=== PATIENT | male | born 1975 | race African-American/Black ===

== ENCOUNTER 2021-05-16 09:37 | Outpatient (REF) | payer OTHER, SELFPAY ==
[2021-05-16 10:52] LABS: COVID-19 Test Negative (Negative)
== END 2021-05-16 09:38 | disposition home or self-care (01) ==
LOC: HO.LAB 09:37
PROVIDERS: PCP Internal Medicine; Visit Provider Internal Medicine
DX: Z20.822 Contact with and (suspected) exposure to COVID-19 (principal)
CPT/HCPCS: 36415; 87635; C9803

== ENCOUNTER 2021-10-27 07:22 | Outpatient (REF) | payer OTHER, SELFPAY ==
--- NOTE | ~2021-10-27 | XR_ITS ---
EXAMINATION: XR knee RT 2V, XR knee standing BI CLINICAL INFORMATION: Reason for Exam M25.569 - Pain in unspecified knee COMPARISON: None. TECHNIQUE: Two views of the right knee and one view standing of the bilateral knees XR/XR knee standing BI FINDINGS/IMPRESSION: * No acute fracture or dislocation. * Moderate degenerative changes of the bilateral knees which on the right involves the medial and patellofemoral compartments with and on the left involves at least the medial compartment with loss of joint space and degenerative spurring. * No right suprapatellar joint effusion or soft tissue abnormality.
--- NOTE | ~2021-10-27 | XR_ITS ---
EXAMINATION: XR knee RT 2V, XR knee standing BI CLINICAL INFORMATION: Reason for Exam M25.569 - Pain in unspecified knee COMPARISON: None. TECHNIQUE: Two views of the right knee and one view standing of the bilateral knees XR/XR knee RT 2V FINDINGS/IMPRESSION: * No acute fracture or dislocation. * Moderate degenerative changes of the bilateral knees which on the right involves the medial and patellofemoral compartments with and on the left involves at least the medial compartment with loss of joint space and degenerative spurring. * No right suprapatellar joint effusion or soft tissue abnormality.
== END 2021-10-27 07:23 | disposition home or self-care (01) ==
LOC: HO.HOSX 07:22
PROVIDERS: Visit Provider Physician Assistant
DX: M17.11 Unilateral primary osteoarthritis, right knee (principal)
CPT/HCPCS: 20610; 73560; 73565; J1040

== ENCOUNTER 2023-03-05 12:03 | Outpatient (REF) | payer OTHER, SELFPAY ==
--- NOTE | ~2023-03-05 | XR_ITS ---
EXAMINATION: XR BILATERAL KNEES CLINICAL INFORMATION: Reason for Exam M25.569 - Pain in unspecified knee COMPARISON: Knee radiographs 10/27/2021 TECHNIQUE: One view of the bilateral knees and 2 views of the right knee FINDINGS: Technically limited AP view of the bilateral knees standing. RIGHT KNEE: No acute fracture or dislocation. Advanced degenerative changes of the knee with near complete loss of medial compartment joint space slightly progressed from prior and medial and lateral compartment osteophytes. Quadriceps tendon and Achilles tendon enthesopathy. No joint effusion. Soft tissues are unremarkable. LEFT KNEE: Limited single view is remarkable for moderate bordering on advanced degenerative changes of the knee with loss of medial compartment joint space and medial compartment osteophytes, similar to prior. Technique limits assessment for fracture or soft tissue abnormalities. XR/XR knee standing BI IMPRESSION: * No acute osseous abnormality. * Advanced degenerative changes of the right knee and moderate bordering on advanced degenerative changes of the left knee.
--- NOTE | ~2023-03-05 | XR_ITS ---
EXAMINATION: XR BILATERAL KNEES CLINICAL INFORMATION: Reason for Exam M25.569 - Pain in unspecified knee COMPARISON: Knee radiographs 10/27/2021 TECHNIQUE: One view of the bilateral knees and 2 views of the right knee FINDINGS: Technically limited AP view of the bilateral knees standing. RIGHT KNEE: No acute fracture or dislocation. Advanced degenerative changes of the knee with near complete loss of medial compartment joint space slightly progressed from prior and medial and lateral compartment osteophytes. Quadriceps tendon and Achilles tendon enthesopathy. No joint effusion. Soft tissues are unremarkable. LEFT KNEE: Limited single view is remarkable for moderate bordering on advanced degenerative changes of the knee with loss of medial compartment joint space and medial compartment osteophytes, similar to prior. Technique limits assessment for fracture or soft tissue abnormalities. XR/XR knee RT 2V IMPRESSION: * No acute osseous abnormality. * Advanced degenerative changes of the right knee and moderate bordering on advanced degenerative changes of the left knee.
== END 2023-03-05 12:04 | disposition home or self-care (01) ==
LOC: HO.HOSX 12:03
PROVIDERS: Visit Provider Physician Assistant
DX: M17.11 Unilateral primary osteoarthritis, right knee (principal)
CPT/HCPCS: 20610; 73560; 73565; J1040

== ENCOUNTER 2023-03-05 12:45 | Outpatient (AMB) | payer OTHER, SELFPAY ==
--- NOTE | 2023-03-05 12:56 | A.OFFVIS_ITS ---
Intake Intake Visit Reasons: ov- Osteoarthritis of right knee Intake Note: Lisbeth is a 47 year old male who presents today for a follow up of his right knee. Hx of use of Tylenol with mild relief. Hx of knee brace with no relief. Right knee was last injected on 10/27/22. Patient reports that this injection lasted him about 3 - 4 months ago. He states that he would like to repeat his injection. Hx of PT with no relief. Allergies [place] nut [BRAZIL NUT] Allergy (Mild, Verified 03/05/23 13:03) ANAPHYLAXIS brazil nuts Allergy (Mild, Verified 03/05/23 13:03) difficulty breathing Apple Jacks cereal Allergy (Mild, Uncoded 07/18/22 14:16) mild beestings Allergy (Mild, Uncoded 07/18/22 14:16) mild HPI ov- Osteoarthritis of right knee HPI Details 47-year-old male who presents in the off ice today for a follow up of right knee pain. The patient had a cortisone injection on 10/27/2021, which gave him 3-4 months of relief. He confirms the use of Tylenol with mild pain relief, use of a knee brace with no pain relief, and participating in physical therapy with no relief. He would like to repeat the cortisone injection while in the office today. [facility]LY [facility], [facility] Social History Current occupational status: employed Current occupation: house keeper/ left hand Review of Systems Const All systems reviewed & are unremarkable except as noted in HPI and below Physical Exam Const General: cooperative, healthy appearing and no acute distress Orientation/consciousness: patient oriented x3 Resp Effort & Inspection: normal respiratory effort and able to speak in complete sentences Cardio Rate: regular rate Peripheral pulses: Peripheral pulses 2+ throughout GI Palpation (GI): Soft to palpation Skin General skin exam: no rashes or lesions noted Lesions: no lesions Rashes: no rashes Neuro General: patient oriented x3 Extrem Other: Right knee normal to inspection. No ecchymosis, erythema, or joint effusion. Mild tenderness to palpation of the medial and lateral joint lines. Cepitus felt with ROM. Negative Pauline's. Negative Anterior drawer. NVI. Office Procedures Joint Injection/Drain Joint Injection/Drain Primary Site: right knee Prep: site was prepped using aseptic technique, ethochloride spray was applied and injection warnings given Injected: 80 mg of, DepoMedrol, with 8 mL of (2% plain lido ) and in the joint Approach Used: anterolateral Procedure: The patient tolerated the procedure well, but had some pain with the injection and there was some relief with the local anesthesia Coding - Large joint Procedure code (CPT) selection complete Results Reviewed Results Reviewed: 03/05/23 13:04 Lidocaine HCl 2 % MPF [Xylocaine 2 % MPF] 5 ml .ROUTE .STK-MED ONE methylPREDNISolone acetate [DEPO-MedroL] 80 mg .ROUTE .STK-MED ONE Assessment & Plan Assessment & Plan (1) Osteoarthritis of right knee: Code(s): M17.11 - Unilateral primary osteoarthritis, right knee Qualifiers: Osteoarthritis type: unspecified Qualified Code(s): M17.11 - Unilateral primary osteoarthritis, right knee Plan Mr. Deshpande is a 47-year-old male who presents in the office today for a follow up of right knee pain. The patient had a cortisone injection on 10/27/2021, which gave him 3-4 months of relief. He confirms the use of Tylenol with mild pain relief, use of a knee brace with no pain relief, and participating in physical therapy with no relief. He would like to repeat the cortisone injection while in the office today. The patient was offered a cortisone injection in the right knee with 80 mg of DepoMedrol. The patient was explained the risk, benefits, and alternatives to receiving this injection. After receiving consent for the injection, the patient had the procedure done while in office today. The patient tolerated the procedure well with no complications. Follow up will be PRN, or sooner if needed. X-rays of the right knee obtained while in the office today and reviewed by me, Jenniffer Kelly PA-C, revealed osteoarthritis. Patient Instructions: Scribed for Jenniffer Kelly PA-C by Lynda Dc medical technologist chief, on 03/05/2023 at 12:46 pm, EST. Coding Level of Care Code Est Pt Level 3 (62798) Diagnoses Osteoarthritis of right knee, unspecified osteoarthritis type M17.11 Osteoarthritis type: unspecified CPT Codes Coding - 35630 Large joint: 04242 - Large joint ([id number])
== END 2023-03-05 13:20 | disposition home or self-care (01) ==
PROVIDERS: PCP Internal Medicine; Visit Provider Physician Assistant
DX: M17.11 Unilateral primary osteoarthritis, right knee (principal)
CPT/HCPCS: 20610; 99213

== ENCOUNTER 2023-06-18 11:20 | Outpatient (AMB) | payer OTHER, SELFPAY ==
--- NOTE | 2023-06-18 11:35 | A.OFFVIS_ITS ---
Intake Intake Visit Reasons: OV - right knee OA, last inj 03/05/23 Intake Note: Lisbeth is a 47 year old male who presents today for a follow up of his right knee OA, last injection 03/05/23. Patient reports his last injection gave him relief and would like to repeat. Allergies [place] nut [BRAZIL NUT] Allergy (Mild, Verified 06/18/23 11:38) ANAPHYLAXIS brazil nuts Allergy (Mild, Verified 06/18/23 11:38) difficulty breathing Apple Jacks cereal Allergy (Mild, Uncoded 07/18/22 14:16) mild beestings Allergy (Mild, Uncoded 07/18/22 14:16) mild HPI OV - right knee OA, last inj 03/05/23 HPI Details 47-year-old male who presents in the off ice today for a follow up of right knee osteoarthritis. I last saw the patient in the office on 03/05/2023 when he has his last cortisone injection in the right knee. The patient reports yesterday he began to have left foot pain with erythema on the lateral aspect . He states he was taking Ibuprofen 800 mg several times starting yesterday to today which gives him some relief. He denies a history of diabetes mellitus or gout. [facility] Social History Current occupational status: employed Current occupation: house keeper/ left hand Review of Systems Const All systems reviewed & are unremarkable except as noted in HPI and below Physical Exam Const General: cooperative, healthy appearing and no acute distress Resp Effort & Inspection: normal respiratory effort and able to speak in complete sentences Cardio Rate: regular rate Peripheral pulses: Peripheral pulses 2+ throughout GI Palpation (GI): Soft to palpation Skin Lesions: no lesions Rashes: no rashes Extrem Other: Right knee normal to inspection. No ecchymosis, erythema, or joint effusion. Mild tenderness to palpation of the medial and lateral joint lines. Cepitus felt with ROM. Negative Pauline's. Negative Anterior drawer. NVI. Office Procedures Joint Injection/Drain Joint Injection/Drain Primary Site: right knee Prep: site was prepped using aseptic technique, ethochloride spray was applied and injection warnings given Injected: 80 mg of, DepoMedrol, with 8 mL of (2% plain lido) and in the joint Approach Used: anterolateral Procedure: The patient tolerated the procedure well, but had some pain with the injection and there was some relief with the local anesthesia Coding 67656 - Large joint Procedure code (CPT) selection complete Assessment & Plan Assessment & Plan (1) Osteoarthritis of right knee: Code(s): M17.11 - Unilateral primary osteoarthritis, right knee Qualifiers: Osteoarthritis type: unspecified Qualified Code(s): M17.11 - Unilateral primary osteoarthritis, right knee Plan Mr. Deshpande is a 47-year-old male who presents in the office today for a follow up of right knee osteoarthritis. I last saw the patient in the office on 03/05/2023 when he has his last cortisone injection in the right knee. The patient reports yesterday he began to have left foot pain with erythema on the side. He states he was taking Ibuprofen 800 mg several times yesterday to today which gives him some relief. He denies a history of diabetes mellitus or gout. The patient was offered a cortisone injection in the right knee with 80 mg of DepoMedrol. The patient was explained the risk, benefits, and alternatives to receiving this injection. After receiving consent for the injection, the patient had the procedure done while in office today. The patient tolerated the procedu re well with no complications. Follow up will be PRN, or sooner if needed. Patient Instructions: Scribed for Jenniffer Kelly PA-C by Lynda Dc medical laboratory manager, on 06/18/2023 at 11:22 am, EST. Coding Level of Care Code Est Pt Level 3 (54002) Diagnoses Osteoarthritis of right knee, unspecified osteoarthritis type M17.11 Osteoarthritis type: unspecified CPT Codes Coding - 31371 Large joint: 75662 - Large joint ([id number])
== END 2023-06-18 11:43 | disposition home or self-care (01) ==
PROVIDERS: PCP Internal Medicine; Visit Provider Physician Assistant
DX: M17.11 Unilateral primary osteoarthritis, right knee (principal)
CPT/HCPCS: 20610; 99213

== ENCOUNTER → 2023-06-18 11:20 | Outpatient (BNVA) | payer OTHER, SELFPAY | PROVIDERS: PCP Internal Medicine; Visit Provider Physician Assistant | DX: M17.11 Unilateral primary osteoarthritis, right knee (principal) | CPT/HCPCS: 20610; J1040 ==

== ENCOUNTER 2023-10-08 11:03 | Outpatient (AMB) | payer OTHER, SELFPAY ==
--- NOTE | 2023-10-08 11:14 | MHC.OFFVIS ---
Vital Signs 10/08/23 11:17 Height 6 ft 1 in Weight 340 lb BMI 44.9 Intake Visit Reasons: OV - right knee OA, last inj 06/18/23 Intake Note: Lisbeth is a 47 year old male who presents today for a follow up of his right knee OA, last injection 06/18/23. Patient reports his last injection lasted him 3 months and he would like to repeat. Allergies [place] nut [BRAZIL NUT] Allergy (Mild, Verified 10/08/23 11:18) ANAPHYLAXIS brazil nuts Allergy (Mild, Verified 10/08/23 11:18) difficulty breathing Apple Jacks cereal Allergy (Mild, Uncoded 07/18/22 14:16) mild beestings Allergy (Mild, Uncoded 07/18/22 14:16) mild HPI HPI OV - right knee OA, last inj 06/18/23: Details: 47-year-old male who presents in the office today for a follow up of right knee osteoarthritis. I last saw the patient in the office on 06/18/2023 when he was given a cortisone injection in the right knee. While in the office the patient reports his last injection lasted for three months and he would like a repeat injection today. [facility] Social History Current occupational status: employed Current occupation: house keeper/ left hand Review of Systems Const All systems reviewed & are unremarkable except as noted in HPI and below Physical Exam Vital Signs: BMI result Body Mass Index 44.9 Const General: cooperative, healthy appearing and no acute distress Resp Effort & Inspection: normal respiratory effort and able to speak in complete sentences Cardio Rate: regular rate Peripheral pulses: Peripheral pulses 2+ throughout GI Palpation (GI): Soft to palpation Skin Lesions: no lesions Rashes: no rashes Extrem Other: Right knee normal to inspection. No ecchymosis, erythema, or joint effusion. Mild tenderness to palpation of the medial and lateral joint lines. Cepitus felt with ROM. Negative Pauline's. Negative Anterior drawer. NVI. Office Procedures Joint Injection/Drain Joint Injection/Drain Primary Site: right knee Prep: site was prepped using aseptic technique, ethochloride spray was applied and injection warnings given Injected: 80 mg of, DepoMedrol, with 8 mL of (2% plain lido ) and in the joint Approach Used: anterolateral Procedure: The patient tolerated the procedure well, but had some pain with the injection and there was some relief with the local anesthesia Coding - Large joint Procedure code (CPT) selection complete Assessment & Plan Assessment & Plan (1) Osteoarthritis of right knee: Code(s): M17.11 - Unilateral primary osteoarthritis, right knee Category: Medical Qualifiers: Osteoarthritis type: unspecified Qualified Code(s): M17.11 - Unilateral primary osteoarthritis, right knee Plan Mr. Deshpande is a 47-year-old male who presents in the office today for a follow up of right knee osteoarthritis. I last saw the patient in the office on 06/18/2023 when he was given a cortisone injection in the right knee. While in the office the patient reports his last injection lasted for three months and he would like a repeat injection today. The patient was offered a cortisone injection in the right knee with 80 mg of DepoMedrol. The patient was explained the risk, benefits, and alternatives to receiving this injection. After receiving consent for the injection, the patient had the procedure done while in the office today. The patient tolerated the procedure well with no complications. Follow up will be PRN, or sooner if needed. Patient Instructions: Scribed by Lynda Dc medical device assembler, for Jenniffer Kelly PA-C on 10/08/2023 at 11:31 am, EST. Coding Level of Care Code Est Pt Level 3 (10521) Diagnoses Osteoarthritis of right knee, unspecified osteoarthritis type M17.11 Osteoarthritis type: unspecified CPT Codes Coding - Large joint: 30566 - Large joint ([id number])
[2023-10-08 11:17] VITALS: BMI 44.9
== END 2023-10-08 11:50 | disposition home or self-care (01) ==
PROVIDERS: PCP Internal Medicine; Visit Provider Physician Assistant
DX: M17.11 Unilateral primary osteoarthritis, right knee (principal)
CPT/HCPCS: 20610; 99213

== ENCOUNTER → 2023-10-08 11:03 | Outpatient (BNVA) | payer OTHER, SELFPAY | PROVIDERS: PCP Internal Medicine; Visit Provider Physician Assistant | DX: M17.11 Unilateral primary osteoarthritis, right knee (principal) | CPT/HCPCS: 20610; J1010 ==

== ENCOUNTER 2024-06-02 09:35 | Outpatient (AMB) | payer OTHER, SELFPAY ==
--- NOTE | 2024-06-02 09:38 | MHC.OFFVIS ---
Intake Visit Reasons: Inj-right knee OA, last inj 10/08/23 Intake Note: Lisbeth is a 48 year old male who presents today for a repeat injection for his right knee, last injection 10/08/23. Patient reports his last injection gave him relief. Allergies [place] nut [BRAZIL NUT] Allergy (Mild, Verified 10/08/23 11:18) ANAPHYLAXIS brazil nuts Allergy (Mild, Verified 10/08/23 11:18) difficulty breathing Apple Jacks cereal Allergy (Mild, Uncoded 07/18/22 14:16) mild beestings Allergy (Mild, Uncoded 07/18/22 14:16) mild HPI HPI Inj-right knee OA, last inj 10/08/23: Details: 48-year-old male who presents in the office today for a follow-up of right knee injection. I last saw the patient in the office on 10/08/23, when he was given a cortisone injection in the right knee. While in the office today, the patient reports that his last cortisone injection in the right knee provided him with relief. He would like to have a repeat injection today. [facility]LY [facility] Social History Current occupational status: employed Current occupation: house keeper/ left hand Review of Systems Const All systems reviewed & are unremarkable except as noted in HPI and below Physical Exam Const General: cooperative, healthy appearing and no acute distress Resp Effort & Inspection: normal respiratory effort and able to speak in complete sentences Cardio Rate: regular rate Peripheral pulses: Peripheral pulses 2+ throughout GI Palpation (GI): Soft to palpation Skin Lesions: no lesions Rashes: no rashes Extrem Other: Right knee normal to inspection. No ecchymosis, erythema, or joint effusion. Mild tenderness to palpation of the medial and lateral joint lines. Cepitus felt with ROM. NVI. Office Procedures AMB Joint Injection/Aspiration Joint Injection/Aspiration Primary Site: right knee Prep: site was prepped using aseptic technique, ethochloride spray was applied and injection warnings given Injected: 80 mg of, DepoMedrol, with 8 mL of (2% plain lido ) and in the joint Approach Used: anterolateral Procedure: The patient tolerated the procedure well, but had some pain with the injection and there was some relief with the local anesthesia Coding 63997 - Large joint Procedure code (CPT) selection complete Assessment & Plan Assessment & Plan (1) Osteoarthritis of right knee: Code(s): M17.11 - Unilateral primary osteoarthritis, right knee Category: Medical Qualifiers: Osteoarthritis type: unspecified Qualified Code(s): M17.11 - Unilateral primary osteoarthritis, right knee Plan Mr. Deshpande is a 48-year-old male who presents in the office today for a follow-up of right knee injection. I last saw the patient in the office on 10/08/23, when he was given a cortisone injection in the right knee. While in the office today, the patient reports that his last cortisone injection in the right knee provided him with relief. He would like to have a repeat injection today. The patient was offered a cortisone injection in the right knee with 80 mg of DepoMedrol. The patient was explained the risk, benefits, and alternatives to receiving this injection. After receiving consent for the injection, the patient had the procedure done while in the office today. The patient tolerated the procedure well with no complications. Follow-up will be PRN, or sooner if needed. Patient Instructions: Scribed by Teresa Cabezas medical claims representative, for Jenniffer Kelly PA-C on 06/02/24 at 9:55 am EST. Coding Level of Care Code Est Pt Level 3 (21072) Diagnoses Osteoarthritis of right knee, unspecified osteoarthritis type M17.11 Osteoarthritis type: unspecified CPT Codes Coding - 27358 Large joint: 38537 - Large joint ([id number])
== END 2024-06-02 10:06 | disposition home or self-care (01) ==
PROVIDERS: PCP Internal Medicine; Visit Provider Physician Assistant
DX: M17.11 Unilateral primary osteoarthritis, right knee (principal)
CPT/HCPCS: 20610; 99213

== ENCOUNTER → 2024-06-02 09:35 | Outpatient (BNVA) | payer OTHER, SELFPAY | PROVIDERS: PCP Internal Medicine; Visit Provider Physician Assistant | DX: M17.11 Unilateral primary osteoarthritis, right knee (principal) | CPT/HCPCS: 20610; J1010; J2003 ==

== ENCOUNTER 2024-09-01 09:28 | Outpatient (AMB) | payer OTHER, SELFPAY ==
--- NOTE | 2024-09-01 09:32 | MHC.OFFVIS ---
Vital Signs 09/01/24 09:44 Height 6 ft 1 in Weight 340 lb BMI 44.9 Intake Visit Reasons: Inj- B/L knee pain, last inj right 06/02/24 Intake Note: Lisbeth is a 48 year old male who presents today with Right Knee OA for a repeat Right Knee Injection, his last injection of 80 mg Depo was injected to the right knee on 06/02/24. Patient is looking to get both of his knees injected if it is possible. Allergies [place] nut [BRAZIL NUT] Allergy (Mild, Verified 09/01/24 09:44) ANAPHYLAXIS brazil nuts Allergy (Mild, Verified 09/01/24 09:44) difficulty breathing Apple Jacks cereal Allergy (Mild, Uncoded 07/18/22 14:16) mild beestings Allergy (Mild, Uncoded 07/18/22 14:16) mild HPI HPI Inj- B/L knee pain, last inj right 06/02/24: Details: Mr. Deshpande is a 48-year-old male who presents to the office today for bilateral knee pain right greater than left. At his last appointment on 06/02/2024 he received a right knee injection which did give him relief up until recently. Reports that he had severe right knee pain and was compensating with his left lower extremity. Since then he has noticed an increase in pain in the left lower extremity. [facility] Social History Current occupational status: employed Current occupation: house keeper/ left hand Review of Systems Const All systems reviewed & are unremarkable except as noted in HPI and below Physical Exam Vital Signs: BMI result Body Mass Index 44.9 Const General: cooperative, healthy appearing and no acute distress Resp Effort & Inspection: normal respiratory effort and able to speak in complete sentences Cardio Rate: regular rate Peripheral pulses: Peripheral pulses 2+ throughout GI Palpation (GI): Soft to palpation Skin Lesions: no lesions Rashes: no rashes Extrem Other: Bilateral knees normal to inspection. No ecchymosis, erythema, or joint effusion. Mild tenderness to palpation of the medial and lateral joint lines. Cepitus felt with ROM. NVI. Office Procedures AMB Joint Injection/Aspiration Joint Injection/Aspiration Primary Site: right knee Secondary Site: left knee Prep: site was prepped using aseptic technique, ethochloride spray was applied and injection warnings given Injected: 80 mg of, DepoMedrol, with 8 mL of (2% plain lidocaine) and in the joint Approach Used: anterolateral Procedure: The patient tolerated the procedure well, but had some pain with the injection and there was some relief with the local anesthesia Coding 45485 - Large joint Procedure code (CPT) selection complete Assessment & Plan Assessment & Plan (1) Osteoarthritis of left knee: Code(s): M17.12 - Unilateral primary osteoarthritis, left knee Category: Medical (2) Osteoarthritis of right knee: Code(s): M17.11 - Unilateral primary osteoarthritis, right knee Category: Medical Qualifiers: Osteoarthritis type: unspecified Qualified Code(s): M17.11 - Unilateral primary osteoarthritis, right knee Plan Mr. Deshpande is a 48-year-old male who presents to the office today for bilateral knee pain right greater than left. At his last appointment on 06/02/2024 he received a right knee injection which did give him relief up until recently. Reports that he had severe right knee pain and was compensating with his left lower extremity. Since then he has noticed an increase in pain in the left lower extremity. The patient was offered a cortisone injection in bilateral knees with 80 mg of DepoMedrol. The patient was explained the risks, benefits, and alternatives to receiving this injection. After receiving consent for the injection, the patient had the procedure done while in the office today. The patient tolerated the procedure well with no complications. Follow-up will be p.r.n., or sooner if needed. X-rays of bilateral knees which were obtained while in the office today and were reviewed by me, Jenniffer Kelly PA-C, revealed osteoarthritis of both knees. No acute fracture dislocation. Orders: Orders XR knee LT 3V Today M25.569 - Pain in unspecified knee XR knee RT 3V Today M25.569 - Pain in unspecified knee Coding Level of Care Code Est Pt Level 3 (40570) Diagnoses Osteoarthritis of left knee M17.12 Osteoarthritis of right knee, unspecified osteoarthritis type M17.11 Osteoarthritis type: unspecified CPT Codes Coding - 40267 Large joint: 88364 - Large joint ([id number])
[2024-09-01 09:44] VITALS: BMI 44.9
== END 2024-09-01 11:40 | disposition home or self-care (01) ==
LOC: HO.HOS 09:28
PROVIDERS: PCP Internal Medicine; Visit Provider Physician Assistant
DX: M17.0 Bilateral primary osteoarthritis of knee (principal)
CPT/HCPCS: 20610; 99213

== ENCOUNTER 2024-09-01 09:28 | Outpatient (REF) | payer OTHER, SELFPAY ==
--- NOTE | ~2024-09-01 | XR_ITS ---
CLINICAL HISTORY: M25.569 - Pain in unspecified knee Left knee three views Comparison: None Findings: No acute fracture or dislocation noted. No significant joint effusion identified. Degenerative change with loss of joint space. This is greatest in the medial compartment. No soft tissue foreign body. Impression: No acute bony abnormality. This document has been electronically signed by: Tad Adrian MD on 09/01/2024 18:29:07
--- NOTE | ~2024-09-01 | XR_ITS ---
CLINICAL HISTORY: M25.569 - Pain in unspecified knee Right knee 2 views Comparison: None Findings: No acute fracture or dislocation noted. No significant joint effusion identified. Degenerative change with loss of joint space. This is greatest in the medial compartment. No soft tissue foreign body. Impression: No acute bony abnormality This document has been electronically signed by: Tad Adrian MD on 09/01/2024 18:28:33
== END 2024-09-01 09:29 | disposition home or self-care (01) ==
LOC: HO.HOSX 09:28
PROVIDERS: PCP Internal Medicine; Visit Provider Physician Assistant
DX: M17.0 Bilateral primary osteoarthritis of knee (principal)
CPT/HCPCS: 20610; 73562; J1010; J2003

== ENCOUNTER → 2024-09-01 09:39 | Outpatient (BNV) | payer OTHER, SELFPAY | PROVIDERS: PCP Internal Medicine; Visit Provider Radiology Diagnostic Radiology | DX: M25.561 Pain in right knee (principal); M25.562 Pain in left knee | CPT/HCPCS: 73562 ==

== ENCOUNTER 2024-12-03 10:04 | Outpatient (AMB) | payer OTHER, SELFPAY ==
--- NOTE | 2024-12-03 10:12 | MHC.OFFVIS ---
Intake Visit Reasons: Inj-right knee OA, last inj 09/01/24 Intake Note: Lisbeth is a 48 year old male who presents today for a repeat injection for his right knee, last injection of 80 mg Depo was injected on both knees on 09/01/24. Patient states he found relief with his last bilateral injections. Accompanied by: Spouse Allergies [place] nut (BRAZIL NUT) Allergy (Mild, Verified 12/03/24 10:13) ANAPHYLAXIS brazil nuts Allergy (Mild, Verified 12/03/24 10:13) difficulty breathing Apple Jacks cereal Allergy (Mild, Uncoded 12/03/24 10:13) mild beestings Allergy (Mild, Uncoded 12/03/24 10:13) mild HPI HPI Inj-right knee OA, last inj 09/01/24: Details: Mr. Deshpande is a 48-year-old male who presents to the office today for evaluation of bilateral chronic knee pain. He had bilateral t knee injections last performed on 09/01/2024. He would like to repeat injections in both knees today. [facility] Medical History (Updated 12/03/24 @ 10:14 by Marilee Nelson [facility]) Osteoarthritis of left knee Osteoarthritis of right knee Social History Current occupational status: employed Current occupation: house keeper/ left hand Review of Systems Const All systems reviewed & are unremarkable except as noted in HPI and below Physical Exam Const General: cooperative, healthy appearing and no acute distress Resp Effort & Inspection: normal respiratory effort and able to speak in complete sentences Extrem Other: Bilateral knees normal to inspection. No ecchymosis, erythema, or joint effusion. Mild tenderness to palpation of the medial and lateral joint lines. Cepitus felt with ROM. NVI. Office Procedures AMB Joint Injection/Aspiration Joint Injection/Aspiration Primary Site: right knee Secondary Site: left knee Prep: site was prepped using aseptic technique, ethochloride spray was applied and injection warnings given Injected: 80 mg of, DepoMedrol and with 8 mL of (2% plain lidocaine) Approach Used: anterolateral Procedure: The patient tolerated the procedure well, but had some pain with the injection and there was some relief with the local anesthesia Coding 17020 - Large joint Procedure code (CPT) selection complete Assessment & Plan Assessment & Plan (1) Osteoarthritis of right knee: Code(s): M17.11 - Unilateral primary osteoarthritis, right knee Category: Medical Qualifiers: Osteoarthritis type: unspecified Qualified Code(s): M17.11 - Unilateral primary osteoarthritis, right knee (2) Osteoarthritis of left knee: Code(s): M17.12 - Unilateral primary osteoarthritis, left knee Category: Medical Plan The patient was offered a cortisone injection in bilateral knees with 80 mg of DepoMedrol. The patient was explained the risks, benefits, and alternatives to receiving this injection. After receiving consent for the injection, the patient had the procedure done while in the office today. The patient tolerated the procedure well with no complications. Follow-up will be PRN, or sooner if needed Coding Level of Care Code Est Pt Level 3 (81803) Diagnoses Osteoarthritis of right knee, unspecified osteoarthritis type M17.11 Osteoarthritis type: unspecified Osteoarthritis of left knee M17.12 CPT Codes Coding - 48576 Large joint: 80834 - Large joint ([id number])
== END 2024-12-03 10:27 | disposition home or self-care (01) ==
PROVIDERS: PCP Internal Medicine; Visit Provider Physician Assistant
DX: M17.0 Bilateral primary osteoarthritis of knee (principal)
CPT/HCPCS: 20610

== ENCOUNTER → 2024-12-03 10:04 | Outpatient (BNVA) | payer OTHER, SELFPAY | PROVIDERS: PCP Internal Medicine; Visit Provider Physician Assistant | DX: M17.11 Unilateral primary osteoarthritis, right knee (principal); M17.12 Unilateral primary osteoarthritis, left knee | CPT/HCPCS: 20610; J1010; J2003 ==

== ENCOUNTER 2025-03-05 09:51 | Outpatient (AMB) | payer OTHER, SELFPAY ==
--- NOTE | 2025-03-05 09:54 | MHC.OFFVIS ---
Intake Visit Reasons: Inj-B/L knee inj last inj 12/03/24 Intake Note: Lisbeth is a 49 year old male who presents today for a repeat injection for his right knee, last injection 12/03/24. Patient states his last injections gave him relief until this past Saturday. Allergies [place] nut (BRAZIL NUT) Allergy (Mild, Verified 03/05/25 10:10) ANAPHYLAXIS brazil nuts Allergy (Mild, Verified 03/05/25 10:10) difficulty breathing Apple Jacks cereal Allergy (Mild, Uncoded 12/03/24 10:13) mild beestings Allergy (Mild, Uncoded 12/03/24 10:13) mild HPI HPI Inj-B/L knee inj last inj 12/03/24: Details: Mr. Deshpande is a 49-year-old male who presents to the office today for chronic bilateral knee pain. He receives cortisone injections roughly every 3 months which help with his pain. His last cortisone injections were on 12/03/2024. This lasted him up until about Saturday of this week 03/01/2025. He is looking to repeat injections in both knees today. [facility] Medical History (Updated 12/03/24 @ 10:14 by CUONG Kelley) Osteoarthritis of left knee Osteoarthritis of right knee Social History Current occupational status: employed Current occupation: house keeper/ left hand Review of Systems Const All systems reviewed & are unremarkable except as noted in HPI and below Physical Exam Const General: cooperative, healthy appearing and no acute distress Resp Effort & Inspection: normal respiratory effort and able to speak in complete sentences Extrem Other: Bilateral knees normal to inspection. No ecchymosis, erythema, or joint effusion. Mild tenderness to palpation of the medial and lateral joint lines. Cepitus felt with ROM. NVI. Office Procedures AMB Joint Injection/Aspiration Joint Injection/Aspiration Primary Site: right knee Secondary Site: left knee Injected: 40 mg of, with 3 mL of, 1% plain lidocaine, 0.25% bupivacaine, in the joint and decadron Approach Used: anterolateral Procedure: The patient tolerated the procedure well, but had some pain with the injection and there was some relief with the local anesthesia Coding 65767 - Bilateral Large Joint Procedure code (CPT) selection complete Assessment & Plan Assessment & Plan (1) Osteoarthritis of right knee: Code(s): M17.11 - Unilateral primary osteoarthritis, right knee Category: Medical Qualifiers: Osteoarthritis type: unspecified Qualified Code(s): M17.11 - Unilateral primary osteoarthritis, right knee (2) Osteoarthritis of left knee: Code(s): M17.12 - Unilateral primary osteoarthritis, left knee Category: Medical Plan The patient was offered a cortisone injections in bilateral knees. The patient was explained the risks, benefits, and alternatives to receiving this injection. After receiving consent for the injection, the patient had the procedure done while in the office today. The patient tolerated the procedure well with no complications. Follow-up will be PRN, or sooner if needed Coding Level of Care Code Est Pt Level 3 (27112) Diagnoses Osteoarthritis of right knee, unspecified osteoarthritis type M17.11 Osteoarthritis type: unspecified Osteoarthritis of left knee M17.12 CPT Codes Coding - 43315 - Bilateral Large Joint: 02659 - Bilateral Large Joint ([id number])
== END 2025-03-05 10:10 | disposition home or self-care (01) ==
LOC: HO.HOS 09:52
PROVIDERS: PCP Internal Medicine; Visit Provider Physician Assistant
DX: M17.0 Bilateral primary osteoarthritis of knee (principal)
CPT/HCPCS: 20610

== ENCOUNTER → 2025-03-05 09:51 | Outpatient (BNVA) | payer OTHER, SELFPAY | PROVIDERS: PCP Internal Medicine; Visit Provider Physician Assistant | DX: M17.0 Bilateral primary osteoarthritis of knee (principal) | CPT/HCPCS: 20610; J0665; J1100; J2003 ==